=== PATIENT | male | born 1960 | race Caucasian/White ===

== ENCOUNTER 2021-09-07 00:36 | Observation (INO) ==
[2021-09-07 01:17] LABS: Basophils # 0.1 K/mcL (0.0-0.2); Basophils % 0.5 %; Eosinophils # 0.1 K/mcL (0.0-0.6); Eosinophils % 1.3 %; Hemoglobin 15.2 g/dL (12.9-16.9); Immature Granulocytes % 0.2 % (0-4); Lymphocytes # 2.7 K/mcL (0.6-4.6); Lymphocytes % 28.3 %; Mean Corpuscular HGB Conc 34.5 g/dL (31.6-35.5); Mean Corpuscular Hemoglobin 30.2 pg (28.0-33.3); Mean Corpuscular Volume 87.3 fL (83.0-100.0); Mean Platelet Volume 11.6 fL (9.4-12.4); Monocytes % 10.1 %; Neutrophils # 5.6 K/mcL (1.6-8.9); Platelet Count 221 K/mcL (140-400); Red Blood Count 5.04 M/mcL (4.19-5.50); Red Cell Distribution Width 12.8 % (11.5-14.5); Segmented Neutrophils % 59.6 %; White Blood Count 9.4 K/mcL (4.3-11.1)
[2021-09-07] MEDS ORDERED: Aspirin 325 MG TABLET PO ONE (01:21)
[2021-09-07] MEDS ORDERED: Isovue-370 500 ML BOTTLE IVP ONE ×2 (01:22)
[2021-09-07 01:44] LABS: Alanine Aminotransferase 41 Units/L (7-52); Albumin 4.8 g/dL (3.5-5.7); Albumin/Globulin Ratio 1.7 (1.1-2.2); Alkaline Phosphatase 61 Units/L (34-104); Aspartate Amino Transferase 23 Units/L (13-39); BUN/Creatinine Ratio 27 (6-26); Bilirubin,Direct 0.1 mg/dL (0.0-0.2); Bilirubin,Indirect 0.5 mg/dL (0.0-1.0); Bilirubin,Total 0.6 mg/dL (0.3-1.0); Blood Urea Nitrogen 27 mg/dL (8-23); Calcium 9.9 mg/dL (8.6-10.3); Carbon Dioxide 24 mEq/L (23-29); Chloride 101 mEq/L (98-107); Globulin 2.9 g/dL (2.4-3.5); Glucose 114 mg/dL (70-105); Osmolality,Calculated 292 (280-300); Potassium 3.6 mEq/L (3.5-5.1); Sodium 138 mEq/L (136-145); Total Protein 7.7 g/dL (6.4-8.9); Troponin I 0.03 ng/mL (< 0.04); eGFR For African Americans > 60 (> 60); eGFR For Non-African Americans > 60 (> 60)
[2021-09-07] MEDS ORDERED: Morphine Sulfate 2 MG/ML SYRINGE IVP ONE (06:27)
[2021-09-07 08:09] LABS: Adenovirus Not Detected (Not Detect); Bordetella Pertussis Not Detected (Not Detect); Chlamydophila pneumoniae Not Detected (Not Detect); Coronavirus 229E Not Detected (Not Detect); Coronavirus HKU1 Not Detected (Not Detect); Coronavirus NL63 Not Detected (Not Detect); Coronavirus OC43 Not Detected (Not Detect); Human Metapneumovirus Not Detected (Not Detect); Human Rhinovirus/Enterovirus Not Detected (Not Detect); Influenza A Subtype 2009 H1 Not Detected (Not Detect); Influenza B Not Detected (Not Detect); Mycoplasma pneumoniae Not Detected (Not Detect); Parainfluenza Virus 1 Not Detected (Not Detect); Parainfluenza Virus 2 Not Detected (Not Detect); Parainfluenza Virus 3 Not Detected (Not Detect); Parainfluenza Virus 4 Not Detected (Not Detect); Respiratory Syncytial Virus Not Detected (Not Detect); SARS-CoV-2 Not Detected (Not Detect)
[2021-09-07] MEDS ORDERED: Melatonin 3 MG TABLET PO PRN (08:13)
[2021-09-07] MEDS ORDERED: Mag Hydrox/Al Hydrox/Simeth 30 ML UDC PO PRN (08:13)
[2021-09-07] MEDS ORDERED: Naloxone 0.4 MG/ML INJ IVP PRN (08:13)
[2021-09-07] MEDS ORDERED: Acetaminophen 325 MG TABLET PO PRN (08:13)
[2021-09-07] MEDS ORDERED: Ondansetron ODT 4 MG TAB.RAPDIS SL PRN (08:13)
[2021-09-07] MEDS ORDERED: Perflutren Lipid Microsphere 1.3 ML in 0.9 % Sodium Chloride 8.7 ML IVP PRN (08:15)
[2021-09-07] MEDS ORDERED: Ipratropium/Albuterol Neb 3 ML IH PRN (08:15)
[2021-09-07 08:23] LABS: ABG Base Excess 1 mEq/L (-2 to 3); ABG HCO3 27 mEq/L (21-27); ABG Oxygen Saturation 100 % (95-98); ABG PCO2 43 mmHg (35-45); ABG PO2 206 mmHg (85-104); ABG TCO2 28 mEq/L (20-26)
[2021-09-07] MEDS ORDERED: Nitroglycerin 0.4 MG TAB.SUBL SL PRN (08:43)
[2021-09-07 09:44] LABS: Basophils # 0.1 K/mcL (0.0-0.2); Basophils % 0.9 %; Eosinophils # 0.1 K/mcL (0.0-0.6); Eosinophils % 2.5 %; Hematocrit 43.1 % (37.5-50.1); Hemoglobin 14.5 g/dL (12.9-16.9); Immature Granulocytes % 0.2 % (0-4); Lymphocytes # 1.7 K/mcL (0.6-4.6); Lymphocytes % 29.5 %; Mean Corpuscular HGB Conc 33.6 g/dL (31.6-35.5); Mean Corpuscular Hemoglobin 30.1 pg (28.0-33.3); Mean Corpuscular Volume 89.4 fL (83.0-100.0); Mean Platelet Volume 11.5 fL (9.4-12.4); Monocytes # 0.7 K/mcL (0.0-1.3); Monocytes % 11.9 %; Neutrophils # 3.1 K/mcL (1.6-8.9); Platelet Count 193 K/mcL (140-400); Red Blood Count 4.82 M/mcL (4.19-5.50); White Blood Count 5.7 K/mcL (4.3-11.1)
[2021-09-07 10:04] LABS: BUN/Creatinine Ratio 27 (6-26); Blood Urea Nitrogen 23 mg/dL (8-23); Calcium 9.4 mg/dL (8.6-10.3); Carbon Dioxide 28 mEq/L (23-29); Chloride 100 mEq/L (98-107); Glucose 135 mg/dL (70-105); Osmolality,Calculated 286 (280-300); Potassium 3.5 mEq/L (3.5-5.1); Sodium 135 mEq/L (136-145); eGFR For African Americans > 60 (> 60); eGFR For Non-African Americans > 60 (> 60)
[2021-09-07] MEDS: *HR* Heparin 5,000 UNIT/ML VIAL SQ SCH (17:26)
[2021-09-08 02:56] LABS: Hematocrit 41.6 % (37.5-50.1); Hemoglobin 13.8 g/dL (12.9-16.9); Mean Corpuscular HGB Conc 33.2 g/dL (31.6-35.5); Mean Corpuscular Hemoglobin 29.7 pg (28.0-33.3); Mean Corpuscular Volume 89.5 fL (83.0-100.0); Platelet Count 175 K/mcL (140-400); Red Blood Count 4.65 M/mcL (4.19-5.50); White Blood Count 5.6 K/mcL (4.3-11.1)
[2021-09-08 03:14] LABS: BUN/Creatinine Ratio 21 (6-26); Blood Urea Nitrogen 22 mg/dL (8-23); Calcium 8.8 mg/dL (8.6-10.3); Carbon Dioxide 25 mEq/L (23-29); Chloride 102 mEq/L (98-107); Glucose 129 mg/dL (70-105); Osmolality,Calculated 285 (280-300); Potassium 3.5 mEq/L (3.5-5.1); Sodium 135 mEq/L (136-145); eGFR For African Americans > 60 (> 60); eGFR For Non-African Americans > 60 (> 60)
[2021-09-08] MEDS: *HR* Heparin 5,000 UNIT/ML VIAL SQ SCH ×2 (04:49→18:59)
[2021-09-08] MEDS ORDERED: Regadenoson 0.4 MG/5 ML SYRINGE IVP ONE (08:44)
[2021-09-08 09:51] LABS: Estimated Average Glucose 163 mg/dl; Hemoglobin A1C 7.3 %
[2021-09-08] MEDS: Aspirin 81 MG TAB.CHEW PO SCH ×2 (11:25→13:51)
[2021-09-08] MEDS: lisinopriL 20 MG TABLET PO SCH ×2 (11:26→13:51)
[2021-09-08] MEDS: Folic Acid 1 MG TABLET PO SCH ×2 (11:26→13:51)
[2021-09-08 15:19] VITALS: PULSE 73; O2SAT 95
[2021-09-08 16:00] VITALS: BP 131/77; TEMP 98.1
== END 2021-09-08 19:21 | disposition home or self-care (01) ==
LOC: 3BNU 00:36 → EMEROOARM 00:36 → SUATTDRO 07:04 → 3NENU 07:56
PROVIDERS: ADMIT Family Medicine; ATTEND Internal Medicine